=== PATIENT | female | born 1950 | race Caucasian/White ===

== ENCOUNTER 2023-10-16 11:46 | Outpatient (CLI) | payer OTHER | END 2023-10-16 20:19 | disposition home or self-care (01) | LOC: MRD 11:46 | PROVIDERS: ATTEND Internal Medicine Critical Care Medicine | DX: I25.10 Atherosclerotic heart disease of native coronary artery without angina pectoris (principal); M47.814 Spondylosis without myelopathy or radiculopathy, thoracic region; Z48.24 Encounter for aftercare following lung transplant | CPT/HCPCS: 71250 ==